=== PATIENT | male | born 1950 | race African-American/Black ===

== ENCOUNTER → 2017-02-09 | Outpatient (CLI) | payer OTHER ==
[2014-08-11 10:50] VITALS: BP 166/83
[~2017-02-09] MED LIST: GLIM4TAB2 PO; METF-620 PO; OLME1TAB35 PO; SIMV80TA3 PO
== END | disposition home or self-care (01) ==
LOC: PMGWOUND 10:43
PROVIDERS: ATTEND Emergency Medicine Undersea and Hyperbaric Medicine
DX: I87.313 Chronic venous hypertension (idiopathic) with ulcer of bilateral lower extremity (principal); L97.211 Non-pressure chronic ulcer of right calf limited to breakdown of skin; L97.221 Non-pressure chronic ulcer of left calf limited to breakdown of skin; I89.0 Lymphedema, not elsewhere classified; E66.01 Morbid (severe) obesity due to excess calories; E78.00 Pure hypercholesterolemia, unspecified; J45.909 Unspecified asthma, uncomplicated; Z87.891 Personal history of nicotine dependence; Z68.44 Body mass index [BMI] 60.0-69.9, adult
CPT/HCPCS: 29581

== ENCOUNTER → 2017-02-12 | Outpatient (CLI) | payer OTHER ==
[2014-08-11 10:50] VITALS: BP 166/83
== END | disposition home or self-care (01) ==
LOC: PMGWOUND 08:10
PROVIDERS: ATTEND Emergency Medicine Undersea and Hyperbaric Medicine
DX: I87.313 Chronic venous hypertension (idiopathic) with ulcer of bilateral lower extremity (principal); L97.211 Non-pressure chronic ulcer of right calf limited to breakdown of skin; L97.221 Non-pressure chronic ulcer of left calf limited to breakdown of skin; I89.0 Lymphedema, not elsewhere classified; J45.909 Unspecified asthma, uncomplicated; E78.00 Pure hypercholesterolemia, unspecified; E66.01 Morbid (severe) obesity due to excess calories; Z68.44 Body mass index [BMI] 60.0-69.9, adult; Z87.891 Personal history of nicotine dependence
CPT/HCPCS: 29581

== ENCOUNTER → 2017-02-16 | Outpatient (CLI) | payer OTHER ==
[2014-08-11 10:50] VITALS: BP 166/83
[~2017-02-16] MED LIST changes: +ALBU0.63 NEB; +AMLO10TA2 PO; +ASPI-482 PO; +DAPA10TA PO; +FURO40TA4 PO; +GLYB5TAB3 PO; +LIRA0.6P2 SQ; +MUPI15CR TP; +OMEP40CA5 PO; +PIOG30TA3 PO; +PROAIR HFA8.5 GM INH; +PROVENTIL HFA6.7 GM IH; +VALS1TAB22 PO
== END | disposition home or self-care (01) ==
LOC: PMGWOUND 07:56
PROVIDERS: ATTEND Emergency Medicine Undersea and Hyperbaric Medicine
DX: I87.313 Chronic venous hypertension (idiopathic) with ulcer of bilateral lower extremity (principal); E11.622 Type 2 diabetes mellitus with other skin ulcer; L97.211 Non-pressure chronic ulcer of right calf limited to breakdown of skin; L97.221 Non-pressure chronic ulcer of left calf limited to breakdown of skin; I89.0 Lymphedema, not elsewhere classified; E66.01 Morbid (severe) obesity due to excess calories; E78.00 Pure hypercholesterolemia, unspecified; J45.909 Unspecified asthma, uncomplicated; Z87.891 Personal history of nicotine dependence; Z68.44 Body mass index [BMI] 60.0-69.9, adult
CPT/HCPCS: 29581

== ENCOUNTER → 2017-02-20 | Outpatient (CLI) | payer OTHER ==
[2014-08-11 10:50] VITALS: BP 166/83
[~2017-02-20] MED LIST changes: -ALBU0.63 NEB; -AMLO10TA2 PO; -ASPI-482 PO; -DAPA10TA PO; -FURO40TA4 PO; -GLYB5TAB3 PO; -LIRA0.6P2 SQ; -MUPI15CR TP; -OMEP40CA5 PO; -PIOG30TA3 PO; -PROAIR HFA8.5 GM INH; -PROVENTIL HFA6.7 GM IH; -VALS1TAB22 PO
== END | disposition home or self-care (01) ==
LOC: PMGWOUND 08:18
PROVIDERS: ATTEND Preventive Medicine Undersea and Hyperbaric Medicine
DX: I87.313 Chronic venous hypertension (idiopathic) with ulcer of bilateral lower extremity (principal); E11.622 Type 2 diabetes mellitus with other skin ulcer; L97.211 Non-pressure chronic ulcer of right calf limited to breakdown of skin; L97.221 Non-pressure chronic ulcer of left calf limited to breakdown of skin; I89.0 Lymphedema, not elsewhere classified; E66.01 Morbid (severe) obesity due to excess calories; E78.00 Pure hypercholesterolemia, unspecified; J45.909 Unspecified asthma, uncomplicated; Z87.891 Personal history of nicotine dependence
CPT/HCPCS: 29581

== ENCOUNTER → 2017-02-27 | Outpatient (CLI) | payer OTHER ==
[2014-08-11 10:50] VITALS: BP 166/83
== END | disposition home or self-care (01) ==
LOC: PMGWOUND 08:16
PROVIDERS: ATTEND Preventive Medicine Undersea and Hyperbaric Medicine
DX: I87.313 Chronic venous hypertension (idiopathic) with ulcer of bilateral lower extremity (principal); E11.622 Type 2 diabetes mellitus with other skin ulcer; L97.211 Non-pressure chronic ulcer of right calf limited to breakdown of skin; L97.221 Non-pressure chronic ulcer of left calf limited to breakdown of skin; I89.0 Lymphedema, not elsewhere classified; E78.00 Pure hypercholesterolemia, unspecified; J45.909 Unspecified asthma, uncomplicated; E66.01 Morbid (severe) obesity due to excess calories; Z68.44 Body mass index [BMI] 60.0-69.9, adult; Z87.891 Personal history of nicotine dependence
CPT/HCPCS: 99214

== ENCOUNTER → 2017-03-02 | Outpatient (CLI) | payer OTHER ==
[2014-08-11 10:50] VITALS: BP 166/83
== END | disposition home or self-care (01) ==
LOC: PMGWOUND 12:55
PROVIDERS: ATTEND Emergency Medicine Undersea and Hyperbaric Medicine
DX: I87.313 Chronic venous hypertension (idiopathic) with ulcer of bilateral lower extremity (principal); E11.622 Type 2 diabetes mellitus with other skin ulcer; L97.211 Non-pressure chronic ulcer of right calf limited to breakdown of skin; L97.221 Non-pressure chronic ulcer of left calf limited to breakdown of skin; I89.0 Lymphedema, not elsewhere classified; E66.01 Morbid (severe) obesity due to excess calories; E78.00 Pure hypercholesterolemia, unspecified; J45.909 Unspecified asthma, uncomplicated; Z87.891 Personal history of nicotine dependence
CPT/HCPCS: 29581; 97597; 97598

== ENCOUNTER → 2017-03-06 | Outpatient (CLI) | payer OTHER ==
[2014-08-11 10:50] VITALS: BP 166/83
== END | disposition home or self-care (01) ==
LOC: PMGWOUND 08:21
PROVIDERS: ATTEND Emergency Medicine Undersea and Hyperbaric Medicine
DX: I87.313 Chronic venous hypertension (idiopathic) with ulcer of bilateral lower extremity (principal); L97.211 Non-pressure chronic ulcer of right calf limited to breakdown of skin; I89.0 Lymphedema, not elsewhere classified; E66.01 Morbid (severe) obesity due to excess calories; E78.00 Pure hypercholesterolemia, unspecified; J45.909 Unspecified asthma, uncomplicated; Z87.891 Personal history of nicotine dependence; Z68.44 Body mass index [BMI] 60.0-69.9, adult
CPT/HCPCS: 29581

== ENCOUNTER → 2017-03-11 | Outpatient (CLI) | payer OTHER ==
[2014-08-11 10:50] VITALS: BP 166/83
== END | disposition home or self-care (01) ==
LOC: PMGWOUND 08:51
PROVIDERS: ATTEND Preventive Medicine Undersea and Hyperbaric Medicine
DX: I87.311 Chronic venous hypertension (idiopathic) with ulcer of right lower extremity (principal); L97.211 Non-pressure chronic ulcer of right calf limited to breakdown of skin; I89.0 Lymphedema, not elsewhere classified; B35.3 Tinea pedis; E66.01 Morbid (severe) obesity due to excess calories; E78.00 Pure hypercholesterolemia, unspecified; J45.909 Unspecified asthma, uncomplicated; Z87.891 Personal history of nicotine dependence; Z68.44 Body mass index [BMI] 60.0-69.9, adult
CPT/HCPCS: 29581

== ENCOUNTER → 2017-08-03 | Day surgery (SDC) | payer OTHER ==
[~2017-08-03] MED LIST changes: -GLIM4TAB2 PO; +LIDOCAINE 1% PF 2 ML VIAL. ID; +LIDOCAINE 2% 100 MG/5 ML SYRINGE.; -METF-620 PO; +MIDAZOLAM HCL/PF 2 MG/2 ML VIAL. IV; -OLME1TAB35 PO; +PROPOFOL 20 ML IV; -SIMV80TA3 PO; +fentaNYL PF VIAL 100 MCG/2 ML VIAL IV
[2017-08-03 13:27] LABS: POC GLUCOSE 88 mg/dL (70-99)
[2017-08-03] MEDS: IV RINGERS,LACTATED 1000ML 1,000 ML IV (13:34)
== END ==
LOC: SURG 12:52
DX: K29.50 Unspecified chronic gastritis without bleeding (principal); K21.0 Gastro-esophageal reflux disease with esophagitis; I10 Essential (primary) hypertension; E78.5 Hyperlipidemia, unspecified; J45.909 Unspecified asthma, uncomplicated; E11.9 Type 2 diabetes mellitus without complications; Z87.39 Personal history of other diseases of the musculoskeletal system and connective tissue; Z90.49 Acquired absence of other specified parts of digestive tract; Z98.890 Other specified postprocedural states
CPT/HCPCS: 43239; 82962; 88305; 88342; J2704

== ENCOUNTER → 2017-08-04 | Outpatient (CLI) | payer OTHER ==
[2017-08-04] MEDS: BARIUM SULFATE 60% 355 ML SUSP PO (08:52)
== END | disposition home or self-care (01) ==
LOC: RAD 07:59
DX: R10.84 Generalized abdominal pain (principal)
CPT/HCPCS: 74250

== ENCOUNTER → 2017-10-30 | Outpatient (CLI) | payer OTHER | END | disposition home or self-care (01) | LOC: PMGWOUND 08:50 | DX: E11.621 Type 2 diabetes mellitus with foot ulcer (principal); L97.821 Non-pressure chronic ulcer of other part of left lower leg limited to breakdown of skin; L97.811 Non-pressure chronic ulcer of other part of right lower leg limited to breakdown of skin; I89.0 Lymphedema, not elsewhere classified; E66.01 Morbid (severe) obesity due to excess calories; J45.909 Unspecified asthma, uncomplicated; E78.00 Pure hypercholesterolemia, unspecified; E11.40 Type 2 diabetes mellitus with diabetic neuropathy, unspecified; I10 Essential (primary) hypertension; Z87.891 Personal history of nicotine dependence; Z68.43 Body mass index [BMI] 50.0-59.9, adult | CPT/HCPCS: 99212 ==

== ENCOUNTER → 2018-10-27 | Outpatient (CLI) | payer OTHER ==
[2017-08-03 14:57] VITALS: BP 153/71
[~2018-10-27] MED LIST changes: +ALBU0.63 NEB; +ALBU2.5V8 IH; +ALBU2.5V8 INH; +AMLO10TA8 PO; +ASPI-482 PO; +CEFP100T PO; +DAPA10TA PO; +FURO40TA4 PO; +GLIM4TAB2 PO; +GLYB5TAB3 PO; -LIDOCAINE 1% PF 2 ML VIAL. ID; -LIDOCAINE 2% 100 MG/5 ML SYRINGE.; +LIRA0.6P2 SQ; +METF10007 PO; -MIDAZOLAM HCL/PF 2 MG/2 ML VIAL. IV; +MUPI15CR TP; +OLME1TAB35 PO; +OMEP40CA5 PO; +PIOG30TA62 PO; -PROPOFOL 20 ML IV; +SIMV80TA17 PO; +TAMS0.4C97 PO; +VALS1TAB22 PO; -fentaNYL PF VIAL 100 MCG/2 ML VIAL IV
--- NOTE | 2018-10-27 15:43 | RAD ---
EXT NON VASC LTD BILATERAL History: Swelling of the right neck Comparison: None. Findings: Multiple sonographic images of the right neck inferiorly are submitted. In this region, there is oblong avascular lesion apparently located just lateral to the right carotid artery and internal jugular vein estimated about 8.3 x 5.1 x 6.6 cm. Impression: 1. There is an oblong lesion of the inferior right neck at site of palpable concern up to 8.3 cm maximal dimension which may be a lipoma. Electronically signed by: Homar Bhardwaj MD (10/27/2018 3:40 PM) [place] [id number]
== END | disposition home or self-care (01) ==
LOC: US 15:12
PROVIDERS: ATTEND Internal Medicine Hematology & Oncology
DX: L98.9 Disorder of the skin and subcutaneous tissue, unspecified (principal)
CPT/HCPCS: 76882